=== PATIENT | female | born 1990 | race Hispanic/Latino ===

== ENCOUNTER 2018-05-28 12:50 | Outpatient (CLI) | payer MEDICAID ==
[2018-05-28] MEDS ORDERED: LACTATED RINGERS 500 ML IV ONE (13:07)
[2018-05-28 14:18] VITALS: BP 113/72
[2018-05-28 15:22] LABS: Amphetamine Screen,Urine PRESUMPTIVE NEGATIVE; Benzodiazepines Screen,Urine PRESUMPTIVE NEGATIVE; Cannabinoid Screen,Urine PRESUMPTIVE NEGATIVE; Cocaine Screen,Urine PRESUMPTIVE NEGATIVE; Methadone Screen,Urine PRESUMPTIVE NEGATIVE; Opiate Screen,Urine PRESUMPTIVE NEGATIVE
[2018-05-28 15:23] LABS: Bacteria,Urine 1+ /HPF (Negative); Bilirubin,Urine NEG (Negative); Blood,Urine MOD (Negative); Color,Urine Straw (Yellow); Protein,Urine <15 mg/dL mg/dL (Negative); Urobilinogen,Urine < 2.0 mg/dL (<2.0)
--- NOTE | 2018-05-28 15:53 | Ultrasound Report ---
PROCEDURE: US OB LIMITED TECHNIQUE: Transabdominal Limited OB ultrasound. HISTORY: vaginal bleeding COMPARISONS: None currently available. FINDINGS: Single intrauterine . Presentation: Cephalic. Placenta: Posterior fundal and right lateral. Grade 2. No previa. No evidence for abruption. No retro placental bleed. heart rate: 146 BPM. Amniotic fluid index: 10.1 cm. Within normal limits. IMPRESSION: * Single live intrauterine . * Placenta is within normal limits. This document is electronically signed by Haris Browne MD., May 28 2018 03:50:00 PM ET
--- NOTE | 2018-05-28 16:04 | Event Note ---
Date: 05/28/18 Patient presented complaining of vaginal bleeding, per RN no active bleeding during VE, only scant dark discharge noted. US report noted, also Tech returned to visualize KOBE. Difficult to assess, ? thinning, CL ~4cm, final report pending. S/w Dr. Maria Del Carmen Vail who states expect thinning in 3rd trimester. MRI results 05/21/2018 reviewed. IVF in progress, peripad. Will observe and ? allow home if no active bleeding. [facility] records reviewed, she had uterine incision dehiscence, "no appreciable myometrium noted" when she had her c/s at 37 weeks for persistent bleeding and absent end diastolic flow. Explained the difficulty with predicting uterine rupture/dehiscence. Thinning is expected. No evidence of compromise of noted at this time. Observe for now will recheck for bleeding and contractions. T's cat 1 for GA no obvious observable contractions at this time
--- NOTE | 2018-05-28 17:15 | Ultrasound Report ---
PROCEDURE: US OB TRANSVAGINAL TECHNIQUE: Transvaginal OB ultrasound. HISTORY: well being COMPARISONS: OB ultrasound of May 28, 2018. FINDINGS: Single intrauterine . Presentation: Cephalic. heart rate: 137 BPM. Cervix: Closed. 4.2 cm. At the lower uterine segment along the anterior wall of the uterus there is thinning of the myometria l tissue. No abnormal bulging of the amniotic membrane. IMPRESSION: * Single live intrauterine . * Thinning of the myometrial tissue at the anterior wall of the lower uterine segment may be related to scarring. Correlation with MRI may be helpful if clinically indicated. This document is electronically signed by Haris Browne MD., May 28 2018 05:13:53 PM ET
--- NOTE | 2018-05-28 18:10 | Event Note ---
Date: 05/28/18 patient reports one time back pain is resolved. No signed of active bleeding. FHT appropriate for gestation, BPP 10/17. Patient states she would like to go home "I'm ready to eat." discussed no heavy lifting, pelvic rest. All questions addressed. pt and s/o verbalize understanding.
--- NOTE | 2018-05-28 18:25 | Ultrasound Report ---
PROCEDURE: US OB BPP WO NON-STRESS TECHNIQUE: Physical profile HISTORY: vaginal bleeding COMPARISONS: FINDINGS: Biophysical profile performed Breathing 2 movement 2 tone 2 Amniotic fluid volume 2 Total score 10/17 cardiac activity present heart rate 152 bpm IMPRESSION: Normal biophysical profile 10/17. This document is electronically signed by Dimitris Su MD., May 28 2018 06:23:16 PM ET
--- NOTE | 2018-05-28 18:49 | Ultrasound Report ---
PROCEDURE: Limited obstetrical ultrasound. TECHNIQUE: Real-time limited sonographic examination was performed for evaluation of each fetus with image documentation (1 or more fetuses). HISTORY: VAG BLEEDING HX:MULTIPLE ; ?dehisence of ut. COMPARISONS: None. FINDINGS: There is a single viable fetus in cephalic presentation. Cardiac activity is documented at 137 bpm. T he uterus appears intact as far as visualized. The myometrium is fairly thin anteriorly in the lower uterine segment. There is no abnormal bulging in this area detected. The cervix measures 4.2 cm in le ngth. IMPRESSION: Viable fetus in cephalic presentation. No definite disruption of the uterus identified. This document is electronically signed by Brain Pedraza MD., May 28 2018 06:47:33 PM ET
== END 2018-05-28 18:26 | disposition home or self-care (01) ==
LOC: TRG 12:50
PROVIDERS: ATTEND Obstetrics & Gynecology
DX: O47.03 False labor before 37 completed weeks of gestation, third trimester (principal); O46.8X2 Other antepartum hemorrhage, second trimester; Z3A.29 29 weeks gestation of pregnancy
CPT/HCPCS: 76815; 76817; 76819; 80307; 81001; J7120; 96360; 96361

== ENCOUNTER 2018-06-14 22:21 | Outpatient (CLI) | payer MEDICAID ==
[2018-06-14 22:43] VITALS: BP 103/56
[2018-06-14] MEDS ORDERED: LACTATED RINGERS 1,000 ML ONE (22:55)
[2018-06-14] MEDS ORDERED: LACTATED RINGERS 500 ML IV SCH (23:00)
--- NOTE | 2018-06-15 00:49 | Ultrasound Report ---
PROCEDURE: US OB LIMITED TECHNIQUE: Real-time limited sonographic examination was performed for evaluation of for each fetus with image documentation (1 or more fetuses). HISTORY: previous x's 5, cervical length COMPARISONS: None . FINDINGS: Placenta is fundal without previa. Fetus is in cephalic presentation. Heart rate is 140 bpm. Cervix m easures 3.5 cm in length and is closed. IMPRESSION: Cervix is 3.5 cm in length and closed. This document is electronically signed by Raf Adair MD., June 15 2018 12:47:27 AM ET
--- NOTE | 2018-06-15 00:53 | Ultrasound Report ---
PROCEDURE: US OB BPP WO NON-STRESS TECHNIQUE: biophysical profile HISTORY: Nonreassuring FHTs, placenta, r/o uterine rupture COMPARISONS: FINDINGS: breathing movements: 2. movements: 2. posture and tone: 2. Qualitative amniotic fluid: 2 Total score: 8/8. Heart rate: 140 bpm. IMPRESSION: Normal biophysical profile.. This document is electronically signed by Raf Adair MD., June 15 2018 12:51:17 AM ET
== END 2018-06-15 01:00 | disposition home or self-care (01) ==
LOC: TRG 22:21
PROVIDERS: ATTEND Obstetrics & Gynecology
DX: O62.9 Abnormality of forces of labor, unspecified (principal); O26.893 Other specified pregnancy related conditions, third trimester; M54.9 Dorsalgia, unspecified; Z3A.32 32 weeks gestation of pregnancy
CPT/HCPCS: 59025; 76815; 76819; J7120; 96360

== ENCOUNTER 2018-07-11 06:00 | Inpatient (IN) | payer MEDICAID ==
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
[~2018-07-11 06:00] MED LIST: LACTATED RINGERS 1,000 ML IV SCH
[2018-07-11 06:45] LABS: Basophils % (Auto) 0.2 % (0.0-1.8); Hematocrit 27.8 % (30.3-42.9); Hemoglobin 9.3 gm/dl (10.1-14.3); Lymphocytes # (Auto) 1.9 K/mm3 (1.2-5.4); Mean Corpuscular HGB Conc 33 % (30-34); Mean Corpuscular Volume 84 fl (79-97); Monocytes # (Auto) 1.5 K/mm3 (0.0-0.8); Monocytes % (Auto) 7.8 % (0.0-7.3); Platelet Count 400 K/mm3 (140-440); Red Blood Count 3.33 M/mm3 (3.65-5.03); Red Cell Distribution Width 15.1 % (13.2-15.2)
--- NOTE | 2018-07-11 07:29 | Anesthesia Consultation ---
Anesthesia Consult and Med Hx Date of service: 07/11/18 - Airway Anesthetic Teeth Evaluation: Good ROM Head & Neck: Adequate Mental/Hyoid Distance: Adequate Mallampati Class: Class II Intubation Access Assessment: Probably Good - Pre-Operative Health Status ASA Pre-Surgery Classification: ASA2 Proposed Anesthetic Plan: Epidural, Spinal - Pulmonary Hx Smoking: Yes (1/2 pack/day) Hx Asthma: Yes (last asthmatic attack-"couple of mths") - Cardiovascular System Hx Hypertension: No - Central Nervous System Hx Seizures: No Hx Psychiatric Problems: Yes (PTSD/?bipolar on meds) - Endocrine Hx Renal Disease: No Hx Hypothyroidism: No Hx Hyperthyroidism: No - Hematic Hx Anemia: Yes Hx Sickle Cell Disease: No - Other Systems Hx Alcohol Use: No - Additional Comments Anesthesia Medical History Comments: h/o c/s x5
--- NOTE | 2018-07-11 07:30 | Anesthesia Day of Surgery ---
Anesthesia Day of Surgery - Day of Surgery Patient Examined: Yes Patient H&P Reviewed: Yes Patient is NPO: Yes
[2018-07-11] MEDS ORDERED: SODIUM CHLORIDE FLUSH SYRINGE 10 ML IV PRN (08:00)
[2018-07-11] MEDS ORDERED: PEPCID IV SCH (08:00)
[2018-07-11] MEDS ORDERED: BICITRA PO SCH (08:00)
[2018-07-11] MEDS ORDERED: ZOFRAN IV PRN ×2 (08:00→11:37)
[2018-07-11] MEDS ORDERED: PHENERGAN PO PRN (08:00)
[2018-07-11] MEDS ORDERED: REGLAN IV SCH (08:00)
[2018-07-11] MEDS ORDERED: PHENERGAN PR PRN (08:00)
[2018-07-11] MEDS ORDERED: DILAUDID IV PRN (08:00)
[2018-07-11] MEDS ORDERED: NARCAN 0.4 MG/1 ML IV PRN ×3 (08:00→11:37)
[2018-07-11] MEDS ORDERED: ANCEF/STERILE WATER 2 GM/20 ML 2 GM/20 ML SYRINGE IV NR (08:00)
[2018-07-11] MEDS ORDERED: BENADRYL IV PRN (08:00)
[2018-07-11] MEDS ORDERED: SUBLIMAZE ONE (08:28)
[2018-07-11] MEDS ORDERED: NEO SYNEPHRINE/NS Syringe(OR USE) IV ONE (08:46)
[2018-07-11] MEDS ORDERED: PITOCin/NS 20 UNIT/1000ML DRIP 20 UNITS/1,000 ML BAG IV SCH ×2 (09:00→11:37)
[2018-07-11] MEDS ORDERED: WATER FOR IRRIG STERILE IR ONE (09:10)
[2018-07-11] MEDS ORDERED: NACL 0.9% IR ONE (09:10)
[2018-07-11] MEDS ORDERED: XYLOCAINE MPF 2% ONE ×2 (09:13)
--- NOTE | 2018-07-11 10:23 | Operative Report ---
Operative Report Operative Report: Date of procedure: 07/11/2018 Pre-operative diagnosis: Intrauterine at 36 weeks with 5 previous paco arean sections and desires permanent sterilization Post-operative diagnosis: Same Procedure name(s): Repeat low transverse section with bilateral tubal ligation modified Antwon type Surgeon: Wilman Carrillo MD Webbing Weaver: Petra Vargas, certified nurse labor delivery rn Anesthesia: Spinal EBL: 600 mL Complications: None Findings: Patient with normal uterus tubes and ovaries bilaterally did have thickened scar tissue and muscle fascia. Male weighing 5 lbs. 15 oz. Apgars 5 at 1 minute and 7 at 5 minutes and 8 at 10 minutes Specimen(s): Portion of the right and left fallopian tubes Procedure: The patient was brought to the operating room. A spinal was placed without any complications. She was then placed in left lateral tilt. Prepped and draped in the usual sterile manner. After testing for adequate anesthesia level, a Pfannenstiel incision was made through her previous scar. This incision was taken down to the fascia through thick scar. The fascia was then nicked in the midline. This incision was extended out laterally with Santana scissors. The fascia was then sharply and bluntly from the underlying rectus muscles. The rectus muscles were bluntly and sharply . The peritoneum was then entered with the milanese knitting machine operator's fingers. This incision was spread vertically with care not to damage the bladder below. The bladder flap was then formed sharply and bluntly with Metzenbaum scissors. Bladder blade placed. A transverse incision was made in lower uterine segment. This incision was extended laterally with the operators fingers. The amniotic sac was then entered bluntly with the milanese knitting machine operator's fingers. The infant was delivered from the vertex position. Bulb suction on the mother's abdomen. Cord was double clamped and cut. The infant was then passed to the nursery personnel who were in attendance. The above scores were given by the nursery personnel. The placenta was then bluntly removed. The uterus was then externalized and wiped clean the remaining products. The uterine incision was closed in layers. The first incision was closed in a locking manner using 0 Vicryl. This was followed by imbricating stitch also with 0 Vicryl. Attention was then switched to the patient's fallopian tubes. Each fallopian tube was identified by its fimbriated end. A portion of each tube was grabbed with the Baldwin clamp approximately 2- 3 cm from the cornua. Each loop was double ligated with 0 chromic suture. The loop were cut with Metzenbaum scissors. Each stump was found to be hemostatic and cauterized with the Bovie. Attention was then switched back to the uterine closure. This closure was hemostatic. The bladder flap was copiously irrigated and found to be hemostatic. The pelvis was copiously irrigated and found to be hemostatic. The uterus was then placed back to the patient's abdomen. The retractors were removed. The rectus muscles were inspected and found to be hemostatic. The fascia was then closed in a running manner using 0 Vicryl. This incision was hemostatic irrigation Bovie. The skin was reapproximated with 4-0 Vicryl subcuticularly. The patient tolerated procedure well. Her urine was clear. The infant was admitted to the stepdown nursery. The patient was accompanied to recovery room in good condition. Instrument count correct 3
--- NOTE | 2018-07-11 10:27 | Post Anesthesia Evaluation ---
- Post Anesthesia Evaluation Patient Participated: Yes Airway Patent: Yes Stable Respiratory Function: Yes Nausea/Vomiting: No Temp > 96.8F: Yes Pain Manageable: Yes Adequeate Hydration: Yes Anesthesia Complications: No Block Receding Appropriately: Yes Patient on Ventilator: No
[2018-07-11] MEDS: DILAUDID IV PRN ×2 (10:57→11:02)
[2018-07-11] MEDS ORDERED: NACL 0.9% 1000 ML 1,000 ML IV SCH (11:00)
[2018-07-11] MEDS ORDERED: FENTANYL PCA IV SCH (11:00)
[2018-07-11] MEDS ORDERED: MILK OF MAGNESIA PO PRN (11:37)
[2018-07-11] MEDS ORDERED: SODIUM CHLORIDE FLUSH SYRINGE 10 ML IV NR (11:37)
[2018-07-11] MEDS ORDERED: D5LR 1,000 ML IV SCH (11:37)
[2018-07-11] MEDS ORDERED: LANSINOH TP PRN (11:37)
[2018-07-11] MEDS ORDERED: TUCKS PAD TP PRN (11:37)
[2018-07-11] MEDS ORDERED: BENADRYL PO PRN (12:15)
[2018-07-11] MEDS ORDERED: BENADRYL IV ONE (12:16)
[2018-07-11] MEDS: TORADOL IV PRN ×2 (12:51→18:35)
[2018-07-11] MEDS: ANCEF/NS 1 GM/50 ML 1 GM/50 ML BAG IV SCH (15:45)
[2018-07-12 00:31] LABS: Hematocrit 25.5 % (30.3-42.9); Hemoglobin 8.7 gm/dl (10.1-14.3)
[2018-07-12] MEDS: NORCO 5/325 PO PRN ×3 (01:39→22:35)
[2018-07-12] MEDS: IBUPROFEN PO PRN ×4 (01:39→22:35)
[2018-07-12] MEDS: ANCEF/NS 1 GM/50 ML 1 GM/50 ML BAG IV SCH (06:16)
[2018-07-12] MEDS: PRENATAL VITAMIN PO SCH (09:47)
[2018-07-12] MEDS: FEOSOL PO SCH (09:47)
--- NOTE | 2018-07-12 16:42 | Progress Note ---
Assessment and Plan POD 1. Patient reports feeling well, no complaints. Attempted to round on patient this AM, she was visiting in NICU. States she just returned from another visit. She is ambulating well, using IS. Fundus is firm, ML, U/1. Vaginal bleeding is scant. She reports pain is well controlled with medications. Incision is well-approximated, healing well, no bleeding or drainage, no s/s of infection. Steri strips remain in place. Marley pad placed to incision to wick moisture. DWP proper hygiene for incision area. SHe reports that she has been wheezing on and off today, she did not bring her inhaler. Lung sounds Clear all lobes at current. Will order albuterol. VSSAF. Continue post op pathway. Subjective - Subjective Date of service: 07/12/18 Principal diagnosis: PPD1 s/p repeat c/s with BTL Patient reports: appetite normal, voiding normally, pain well controlled, ambulating normally : in NICU Objective - Vital Signs Latest vital signs: Vital Signs Temp Pulse Resp BP BP Pulse Ox 07/12/18 16:02 20 07/12/18 09:47 20 07/12/18 05:34 98.5 F 18 131/84 07/12/18 05:30 98.5 F 64 18 131/84 96 07/12/18 01:50 16 119/84 07/12/18 01:45 98.4 F 58 L 16 119/84 98 07/11/18 21:45 98.7 F 62 16 124/84 96 07/11/18 17:42 98.3 F 57 L 18 114/67 97 Intake and Output 07/12/18 07/12/18 07/12/18 07:59 15:59 23:59 Intake Total 170 Output Total 300 Balance -130 Intake: IV 50 ANCEF/NS 1 GM/50 ML 1 gm 50 In 50 ml @ 100 mls/hr IV Q8H [facility] Rx#:[id number] Intake, Free Water 120 Output: Urine 300 Void 300 Other: Total, Output Amount 300 - Exam Breasts: Present: normal Cardiovascular: Present: Regular rate, Normal S1, Normal S2 Lungs: Present: Clear to auscultation Abdomen: Present: normal appearance, soft Vulva: both: normal Uterus: Present: normal, firm Extremities: Present: normal Incision: Present: normal, dry, intact - Labs Labs: Abnormal lab results 07/12/18 Range/Units 00:03 Hgb 8.7 L (10.1-14.3) gm/dl Hct 25.5 L (30.3-42.9) %
[2018-07-12] MEDS ORDERED: PROVENTIL IH PRN (16:43)
[2018-07-13] MEDS: IBUPROFEN PO PRN ×2 (05:55→11:22)
--- NOTE | 2018-07-13 09:38 | Discharge Summary ---
Providers - Providers Date of Admission: 07/11/18 06:00 Date of discharge: 07/13/18 (desires d/c home) Attending physician: ALVA SOLIMAN 07/11/18 11:37 Consult to Java Websphere Developer [CONS] Routine Reason For Exam: Primary care physician: ALVA SOLIMAN Hospitalization Reason for admission: repeat c/s with tubal Condition: Good Pertinent studies: Postop H&H 8.7/25.5, asymptomatic, existing anemia Procedures: repeat c/s w/ tubal Hospital course: uncomplicated repeat c/s and course Disposition: DC-01 TO HOME OR SELFCARE - Discharge Diagnoses (1) delivery delivered Status: Acute (2) Anemia Status: Acute Qualifiers: Anemia type: iron deficiency Core Measure Documentation - Palliative Care Palliative Care/ Comfort Measures: Not Applicable - Core Measures Any of the following diagnoses?: none Exam - Constitutional Vitals: Temp Pulse Resp BP Pulse Ox 97.8 F 54 L 16 142/82 98 07/13/18 08:03 07/13/18 08:03 07/13/18 08:03 07/13/18 08:03 07/13/18 08:03 General appearance: Present: no acute distress, well-nourished - EENT Eyes: Present: PERRL ENT: hearing intact, clear oral mucosa - Neck Neck: Present: supple, normal ROM - Respiratory Respiratory effort: normal Respiratory: bilateral: CTA - Cardiovascular Heart Sounds: Present: S1 & S2. Absent: rub, click - Extremities Extremities: pulses symmetrical, No edema Peripheral Pulses: within normal limits - Abdominal General gastrointestinal: Present: soft, non-tender, non-distended, normal bowel sounds Female genitourinary: Present: normal - Integumentary Integumentary: Present: clear, warm, dry - Musculoskeletal Musculoskeletal: gait normal, strength equal bilaterally - Psychiatric Psychiatric: appropriate mood/affect, intact judgment & insight - Neurologic Neurologic: CNII-XII intact, moves all extremities - Additional findings Additional findings: incision D&I, VSSAF, baby in NICU Plan Activity: advance as tolerated Diet: regular Wound: open to air, keep clean and dry Follow up with: ALVA SOLIMAN MD [Primary Care Provider] - 7 Days (Congratulations!! Please keep scheduled appointment for incision check. Call for any questions or concerns. ) Prescriptions: Docusate Sodium [Colace] 100 mg PO BID PRN #60 capsule PRN Reason: Constipation Ferrous Sulfate [Feosol 325 MG tab] 325 mg PO BID #60 tablet Ibuprofen [Motrin 800 MG tab] 800 mg PO Q6H PRN #30 tablet PRN Reason: Pain oxyCODONE /ACETAMINOPHEN [Percocet 5/325 mg] 1 - 2 tab PO Q4H PRN #30 tablet PRN Reason: Pain, Moderate
[2018-07-13] MEDS: NORCO 5/325 PO PRN (11:22)
[2018-07-13] MEDS: PRENATAL VITAMIN PO SCH (11:22)
[2018-07-13] MEDS: FEOSOL PO SCH (11:22)
[2018-07-13 12:04] VITALS: BP 137/80
== END 2018-07-13 12:08 | disposition home or self-care (01) | DRG 765 ==
LOC: APU 06:00 → OB 11:34
PROVIDERS: ADMIT Obstetrics & Gynecology; ATTEND Obstetrics & Gynecology
PROC: 10D00Z1 Extraction of Products of Conception, Low, Open Approach (ICD-10-PCS; principal; 2018-07-11)
PROC: 0UB70ZZ Excision of Bilateral Fallopian Tubes, Open Approach (ICD-10-PCS; 2018-07-11)
DX: O34.29 Maternal care due to uterine scar from other previous surgery (principal); R71.0 Precipitous drop in hematocrit; O99.344 Other mental disorders complicating childbirth; Z3A.36 36 weeks gestation of pregnancy; J45.909 Unspecified asthma, uncomplicated; F17.210 Nicotine dependence, cigarettes, uncomplicated; O99.334 Smoking (tobacco) complicating childbirth; F31.70 Bipolar disorder, currently in remission, most recent episode unspecified; F43.11 Post-traumatic stress disorder, acute; O99.02 Anemia complicating childbirth; O99.52 Diseases of the respiratory system complicating childbirth; Z37.0 Single live birth; Z88.5 Allergy status to narcotic agent; Z91.040 Latex allergy status
CPT/HCPCS: 36415; 59025; 85014; 85018; 85025; 86850; 86900; 86901; 88302; 96372; G0378; J0690; J0702; J1170; J1200; J1885; J2370; J2590; J2765; J3010; J7120; J7121